=== PATIENT | male | born 1975 | race Caucasian/White ===

== ENCOUNTER 2017-02-06 06:31 | Day surgery (SDC) | payer OTHER ==
[2017-02-03 13:45] LABS: HEMOGLOBIN 12.4 g/dL (13.6-17.8)
[2017-02-03 13:49] LABS: HEMATOCRIT 37.8 % (40.0-51.0)
[2017-02-03 13:57] LABS: A/G RATIO 1.2 (0.7-1.9); ALBUMIN 3.8 G/DL (3.5-5.0); ALKALINE PHOSPHATASE 56 U/L (45-117); BUN (BLOOD UREA NITROGEN) 13 MG/DL (6-23); CALCIUM, SERUM 8.8 MG/DL (8.5-10.4); CHLORIDE, SERUM 107 MMOL/L (96-112); CO2 (CARBON DIOXIDE) 29 MMOL/L (24-34); CREATININE 0.97 MG/DL (0.70-1.30); GFR AFRICAN AMERICAN 110 ML/MIN (>=60); GFR NON AFRICAN AMERICAN 95 ML/MIN (>=60); GLOBULIN 3.3 G/DL (2.5-4.1); GLUCOSE, SERUM 91 MG/DL (60-99); POTASSIUM, SERUM 3.9 MMOL/L (3.5-5.3); SGOT(AST) 20 U/L (5-40); SGPT(ALT) 23 U/L (5-65); SODIUM, SERUM 143 MMOL/L (135-148); TOTAL BILIRUBIN 0.5 MG/DL (0-1.2); TOTAL PROTEIN 7.1 G/DL (6.0-8.5)
--- NOTE | ~2017-02-06 | OP ---
Record Of Operation [facility] [address] [place]. [address] NAME: ARELY VELA : 71 STATUS : [facility] PAT#: [id number] AGE: 41 ADM/REG DATE : 02/06/17 MR#: [id number] REPORT SERV DATE: 02/06/17 DICTATED BY: YURI US DATE: 02/06/17 REPORT STATUS : Draft TRANSCRIBED BY: MODL DATE: 02/06/17 DATE OF PROCEDURE: 02/06/2017 PREOPERATIVE DIAGNOSIS: Left inguinal hernia. POSTOPERATIVE DIAGNOSIS: Left inguinal hernia with right inguinal hernia. PROCEDURE: Laparoscopic reduction and mesh patch repair of bilateral inguinal hernia. SURGEON: Yuri Us M.D. DESCRIPTION OF OPERATIVE PROCEDURE: The patient was brought to operating suite, placed in supine position, underwent satisfactory general endotracheal anesthesia without incident. The skin of the abdomen was scrubbed, prepped, and draped in the usual sterile fashion. 0.5% Marcaine with epinephrine was utilized as supplemental local anesthesia at all intended trocar sites. Initially, an infraumbilical incision was performed dissecting through the skin and subcutaneous tissue to the umbilical fascia. Inferolateral retraction of the left exposed the medial aspect of the left anterior rectus sheath. This was incised longitudinally and the medial aspect of the left rectus muscle was identified and retracted laterally. This exposed the left posterior rectus sheath. A preperitoneal dissection balloon was inserted posterior left rectus sheath to the level of pubic tubercle and it was insufflated under direct camera visualization. This created a preperitoneal dissection plane bilaterally. The dissection balloon was replaced with a structural balloon and CO2 was insufflated into the preperitoneal space for pressures of 15 mmHg throughout the case. Two additional 5 mm trocars were placed in the infraumbilical midline under direct visualization. Completion of the preperitoneal dissection was performed bilaterally revealing bilateral indirect defects, Hesselbach's triangle, the cord structures, and the inferior epigastric vessels were skeletonized. Two separately placed pieces of Bard 3DMax polypropylene mesh, size large, oriented left and right were utilized. They were rolled up, placed in local anesthesia, and placed in the preperitoneal space. They were unrolled over the inguinal canals bilaterally covering Hesselbach's triangle, the inferior epigastric vessels, and allowing the cord structures to egress between the lower edge of the mesh. Multiple firings of the SorbaFix helical tacker were utilized to plicate the mesh in position. Hemostasis was assured and the preperitoneal space was allowed to collapse. CO2 was milked from the preperitoneal space. Left anterior rectus sheath was closed with [id number] suture of 0 Vicryl, subcutaneous Record Of Operation [address] [address] NAME: ARELY VELA : 71 STATUS : [facility] PAT#: [id number] AGE: 41 ADM/REG DATE : 02/06/17 MR#: [id number] REPORT SERV DATE: 02/06/17 DICTATED BY: YURI US DATE: 02/06/17 REPORT STATUS : Draft TRANSCRIBED BY: JOSSELINE DATE: 02/06/17 tissue closed at all sites with interrupted 4-0 Vicryl running subcuticular stitch, 4-0 Vicryl for the skin. Dermabond and skin adhesive placed. The patient tolerated the procedure well, was returned to PACU in stable condition. At the termination of the procedure, sponge, needle, lap, and instrument counts were correct x3. ESTIMATED BLOOD LOSS: Less than 10 mL. WR/MODL Yuri Us M.D. / [id number] CC: Emmie Gordillo M.D.
[~2017-02-06 06:31] MED LIST: ALIGN4 MG PO; FISH-EPA1000 MG PO; MIRAPEX5 PO; MULTIVITAMI1 PO; VYVANSE30 MG PO; ZYRTEC ALLGY10 MG PO
== END 2017-02-06 12:31 | disposition home or self-care (01) ==
LOC: SDC 06:31
PROVIDERS: Specialist
PROC: 0YUA4JZ Supplement Bilateral Inguinal Region with Synthetic Substitute, Percutaneous Endoscopic Approach (ICD-10-PCS; principal; 2017-02-06 07:45)
DX: K40.20 Bilateral inguinal hernia, without obstruction or gangrene, not specified as recurrent (principal); G47.9 Sleep disorder, unspecified; Z98.890 Other specified postprocedural states; Z79.899 Other long term (current) drug therapy
CPT/HCPCS: 80053; 85014; 85018; A9270-GY; C1726; C1727; C1781; J0690; J1885; J2250; J2405; J2710; J3010